=== PATIENT | female | born 1945 | race Caucasian/White ===

== ENCOUNTER 2017-03-19 08:45 | Inpatient (IN) | payer OTHER ==
[2017-02-12 12:10] VITALS: BMI 40.0
--- NOTE | 2017-02-12 12:53 | PAT Medication Instructions ---
Service Date Feb 12, 2017. Current Home Medication List Acetaminophen (Tylenol), 1,000 MG PO BID Aspirin (Aspirin Ec), 81 MG PO NOON Diphenhydramine Hcl (Benadryl Allergy), 1 CAP PO DAILY PRN for ALLERGIES Losartan Potassium & Hydrochlo (Hyzaar), 1 TAB PO QAM Meclizine Hcl (Meclizine Hcl), 1 TAB PO TID PRN for DIZZY Medication Instructions For Your Scheduled Surgery - Hold the following medications the morning of surgery: Losartan Potassium & Hydrochlo (Hyzaar), 1 TAB PO QAM Diphenhydramine Hcl (Benadryl Allergy), 1 CAP PO DAILY PRN for ALLERGIES - Take the following medications the morning of surgery with a sip of water OTHERWISE NOTHING TO EAT OR DRINK AFTER MIDNIGHT: Acetaminophen (Tylenol), 1,000 MG PO BID (may take if needed up to 4 hours prior to surgery) Aspirin (Aspirin Ec), 81 MG PO NOON (time dependent) Meclizine Hcl (Meclizine Hcl), 1 TAB PO TID PRN for DIZZY - Take the following medications as scheduled the night before surgery: Acetaminophen (Tylenol), 1,000 MG PO BID Diphenhydramine Hcl (Benadryl Allergy), 1 CAP PO DAILY PRN for ALLERGIES Meclizine Hcl (Meclizine Hcl), 1 TAB PO TID PRN for DIZZY If you have any questions please call us at [phone] or [phone] or [phone]
[2017-02-12 13:30] LABS: BASO % 0.3 %; BASO ABS # 0.02 K/uL (0-0.2); COMPLETE YES; EOS % 1.3 %; HEMATOCRIT 41.4 % (37-47); IG% 0.3 %; LYMPH % 28.3 %; LYMPH ABS # 1.91 K/uL (1.2-3.4); MEAN CORPUSCULAR HEMOGLOBIN 28.7 pg (25-34); MEAN CORPUSCULAR HGB CONC 33.8 g/dl (32-36); MEAN PLATELET VOLUME 10.2 fL (7.4-10.4); MONO % 5.5 %; NEUT % 64.3 %; PLATELET COUNT 224 K/uL (130-400); RED BLOOD COUNT 4.87 M/uL (4.2-5.4); WHITE BLOOD COUNT 6.76 K/uL (4.8-10.8)
[2017-02-12 13:34] LABS: URINE APPEARANCE CLEAR (CLEAR); URINE BILIRUBIN NEG (NEG); URINE COLOR YELLOW; URINE NITRITE NEG (NEG); URINE PH 7.5 (4.5-7.5); URINE SPECIFIC GRAVITY 1.023 (1.000-1.030); UROBILINOGEN NEG (NEG); ZZUR CULT IF INDIC CLEAN CATCH NO
[2017-02-12 13:41] LABS: PROTHROMBIN TIME (PATIENT) 10.7 SECONDS (9.0-12.0)
[2017-02-12 13:49] LABS: MANUAL MICROSCOPIC REQUIRED? NO; REVIEW REQ? NO
--- NOTE | 2017-02-12 14:09 | DIAGNOSTIC IMAGING REPORT ---
CHEST 2 VIEWS ROUTINE CLINICAL HISTORY: Preoperative chest COMPARISON STUDY: No previous studies for comparison. FINDINGS: The cardiac and mediastinal contours are normal. There is no evidence of focal pulmonary consolidation. There is no evidence of failure. No pleural effusions are visualized.[ IMPRESSION: No active disease in the chest. Electronically signed by: Cuba Hurt M.D. 02/12/2017 2:08 PM Dictated Date/Time: 02/12/2017 2:07 PM
[2017-02-12 14:16] LABS: BUN/CREATININE RATIO 22.6 (10-20); CALCIUM 9.4 mg/dl (8.5-10.1); CREATININE 0.72 mg/dl (0.60-1.20); POTASSIUM 3.9 mmol/L (3.5-5.1)
--- NOTE | 2017-03-18 13:57 | HISTORY & PHYSICAL EXAMINATION ---
DATE OF ADMISSION: 03/19/2017 CHIEF COMPLAINT: Right knee pain. HISTORY OF PRESENT ILLNESS: Jeanette is a 71-year-old female with a 3-year history of right knee pain. The patient rates her pain a 7/10. She has pain with her daily activities. She has limited standing and walking tolerance. Pain is worse with weightbearing. The patient has had injections, physical therapy and Tylenol without relief. She has failed conservative treatment and is scheduled for right knee replacement. PAST MEDICAL HISTORY: Hypertension, mitral valve prolapse, diverticulosis and urinary incontinence. She denies heart disease, diabetes or DVT. PAST SURGICAL HISTORY: Hysterectomy and cataract extraction. SOCIAL HISTORY: The patient denies alcohol or tobacco use. She lives in a single story home. She lives alone but her sister lives close by. She is retired. FAMILY HISTORY: Negative for DVT. MEDICATIONS: Losartan 25 mg, aspirin 81 mg, Tylenol 500 mg, meclizine 25 mg. ALLERGIES: None. REVIEW OF SYSTEMS: See HPI. Ten other systems reviewed, all negative. PHYSICAL EXAMINATION: VITAL SIGNS: Height 5 feet 0 inches, weight 206 pounds, BMI 40. GENERAL: This is a well-developed, well-nourished female who is alert and oriented x3. Mood and affect are appropriate. HEENT: Normocephalic, atraumatic. Mucous membranes are moist and intact. NECK: Supple without lymphadenopathy. HEART: Regular rate and rhythm without murmurs, rubs or gallops. LUNGS: Clear to auscultation without wheezes or rhonchi. ABDOMEN: Soft and nontender. Bowel sounds are equal and active. EXTREMITIES: No ecchymosis, redness or warmth. Thigh and calf are soft and nontender. She has neutral alignment. Range of motion is from 5-115 degrees with +1 laxity. She is neurovascularly intact with +5/5 strength. X-RAY EXAMINATION: AP and lateral views show joint space narrowing and osteophyte formation. IMPRESSION: Degenerative joint disease, right knee. PLAN: The patient will be admitted for a right total knee arthroplasty. We will plan on aspirin for DVT prophylaxis. PCP is Surinder Da Silva.
[~2017-03-19] VITALS: Ht 154.9 cm; Wt 93.0 kg
[2017-03-19] VITALS (8 sets, daily range): BP systolic 102–126; BP diastolic 69–86; PULSE 67–98; TEMP 36.3–36.8; O2SAT 92–99; Ht 154.9 cm; Wt 93.0 kg
[~2017-03-19 08:45] MED LIST: ACET-1256 PO; ACETAMINOPHEN 500 MG TAB PO SCH; ASPI81TA28 PO; BUPIVACAINE 0.25% 30 ML VIAL ONE; BUPIVACAINE 0.5 % 5 MG/1 ML PF 10ML VIAL ONE; CEFAZOLIN 2000 MG/60 ML D5W 60 ML IV SCH; CeleBREX 200 MG CAP PO SCH; DEXAMETHASONE 4 MG TAB PO SCH; DIPH25CA65 PO; FAMOTIDINE 20 MG TAB PO SCH; GABAPENTIN 300 MG CAP PO SCH; LACTATED RINGER'S 1000ML 1,000 ML IV SCH; LACTATED RINGER'S 1000ML 500 ML IV ONE; LACTATED RINGER'S 1000ML IV SCH; LOSA100T2 PO; MECL1TAB42 PO; METOCLOPRAMIDE HCL 10 MG TAB PO SCH; POLYMYXIN B SULFATE 100,000 UNITS in NSS 100ML IR SCH; ROPIVACAINE 5MG/ML 30 ML 150 MG, BUPIVACAINE/EPINEPHR 0.5% MPF 30 ML, KETOROLAC TROMETH... INFIL SCH; SCOPOLAMINE 1.5 MG TDSY TD SCH; TRANEXAMIC ACID INJ 1,000 MG in SODIUM CHLORIDE 0.9% 100ML 100 ML IV SCH; VANCOMYCIN INJ 400 MG in NSS 100ML IR SCH
[2017-03-19] MEDS ORDERED: MIDAZOLAM HCL 1 MG/ML 2ML VIAL ONE (09:16)
[2017-03-19] MEDS ORDERED: FENTANYL CITRATE INJ 50 MCG/1 ML 2 ML VIAL ONE (09:16)
--- NOTE | 2017-03-19 09:56 | History & Physical Bridge Note ---
H&P Re-Evaluation Bridge Note: I have examined the patient, reviewed the History & Physical and in the interval since the performance of the History & Physical I have noted the following changes of clinical significance: No changes noted
[2017-03-19] MEDS ORDERED: ORTHO JOINT ANESTHETIC ONE (10:58)
[2017-03-19] MEDS ORDERED: BUPIVACAINE/EPINEPHRINE 0.25% 1:200,000 30 ML VIAL ONE (10:59)
[2017-03-19] MEDS ORDERED: BACITRACIN 50000 UNIT VIAL ONE (10:59)
[2017-03-19] MEDS ORDERED: POVIDONE-IODINE OP SOLN 30 ML BTL ONE (10:59)
[2017-03-19] MEDS ORDERED: KETOROLAC TROMETHAMINE 30 MG/ML VIAL IV. PRN (11:45)
[2017-03-19] MEDS ORDERED: HYDROmorphone INJ 2 MG/ML SYR/VIAL IV PRN (11:45)
[2017-03-19] MEDS ORDERED: ONDANSETRON INJ 2 MG/ML 2 ML VIAL IV PRN ×2 (11:45→12:45)
[2017-03-19] MEDS ORDERED: PHENYLEPHRINE 100MCG/ML 5ML SYR IV PRN (11:45)
[2017-03-19] MEDS ORDERED: ATROPINE SULFATE 0.1 MG/ML 5ML SYR IV PRN (11:45)
[2017-03-19] MEDS ORDERED: LIDOCAINE HCL 2% 2 ML VIAL (20MG/ML) ONE (11:55)
[2017-03-19] MEDS ORDERED: PROPOFOL IV EMULSION 10 MG/ML 20 ML VIAL IV ONE (11:55)
--- NOTE | 2017-03-19 12:40 | [facility] Post Operative Brief Note ---
Immediate Operative Summary Operative Date Mar 19, 2017. Pre-Operative Diagnosis Right Knee Degenerative Joint Disease Post-Operative Diagnosis Right Knee Degenerative Joint Disease MORBID OBESITY Procedure(s) Performed Right Total Knee Arthroplasty Surgeon Dr. Pablo Vaz Puller Out Surgeon(s) John Sun PA-C Estimated Blood Loss 100ml Findings SEVERE DZ Specimens A. Right Knee Bone and Tissue Complication(s) None Disposition Recovery Room / PACU
[2017-03-19] MEDS ORDERED: SOD PHOSPHATE/SOD BIPHOSPHATE ENEMA 132 ML BTL PR PRN (12:45)
[2017-03-19] MEDS ORDERED: BISACODYL 10 MG SUPP PR PRN (12:45)
[2017-03-19] MEDS ORDERED: ALUMINUM/MAGNESIUM/SIMETH (MAALOX MAX) 30 ML UDC PO PRN (12:45)
[2017-03-19] MEDS ORDERED: TRAMADOL HCL 50 MG TAB PO PRN (12:45)
[2017-03-19] MEDS ORDERED: MoRPHine SULFATE 2 MG/ML CARP IV PRN (12:45)
[2017-03-19] MEDS ORDERED: MAGNESIUM HYDROXIDE SUSP 30 ML UDC PO PRN (12:45)
[2017-03-19] MEDS ORDERED: ZOLPIDEM TARTRATE 5 MG TAB PO PRN (12:45)
[2017-03-19] MEDS ORDERED: DiphenhydrAMINE HCL 50 MG/ML VIAL IV PRN (12:45)
[2017-03-19] MEDS ORDERED: METOCLOPRAMIDE HCL INJ 5 MG/ML 2 ML VIAL IV PRN (12:45)
[2017-03-19] MEDS ORDERED: PHENYLEPHRINE 100MCG/ML 5ML SYR ONE (12:52)
--- NOTE | 2017-03-19 14:04 | DIAGNOSTIC IMAGING REPORT ---
RIGHT KNEE 2 VIEWS History: Right total knee arthroplasty. Degenerative arthritis. Postop. FINDINGS: The patient is status post a right total knee arthroplasty. The hardware is intact. No fracture or dislocation. Surgical drains are in place. IMPRESSION: Right total knee arthroplasty. No evidence for hardware complication. Electronically signed by: Javon Duarte M.D. 03/19/2017 2:02 PM Dictated Date/Time: 03/19/2017 2:01 PM
--- NOTE | 2017-03-19 14:59 | Anesthesiology Progress Note ---
Anesthesia Post Op Note Date & Time Mar 19, 2017 at 14:58 Vital Signs Pain Intensity: 0 Vital Signs Past 12 Hours Date Time Temp Pulse Resp B/P Pulse Ox O2 Delivery O2 Flow Rate FiO2 03/19/17 14:20 73 16 94/57 95 Nasal Cannula 2 03/19/17 14:10 66 16 97/51 95 Nasal Cannula 2 03/19/17 14:00 69 16 103/57 95 Nasal Cannula 2 03/19/17 13:50 79 16 106/76 95 Nasal Cannula 2 03/19/17 13:40 36.5 76 16 108/74 95 Nasal Cannula 2 03/19/17 13:30 84 16 119/86 100 Nasal Cannula 2 03/19/17 13:23 36.0 75 16 107/65 100 Mask 10 03/19/17 09:37 36.5 93 20 122/86 98 Room Air Notes Mental Status: alert / awake / arousable, participated in evaluation Pt Amnestic to Procedure: Yes Nausea / Vomiting: adequately controlled Pain: adequately controlled Airway Patency, RR, SpO2: stable & adequate BP & HR: stable & adequate Hydration State: stable & adequate Anesthetic Complications: no major complications apparent
[2017-03-19] MEDS: CHECK SCOPOLAMINE PATCH PLACEMENT SCH ×2 (16:00→23:40)
--- NOTE | 2017-03-19 17:13 | OPERATIVE REPORT ---
DATE OF OPERATION: 03/19/2017 PREOPERATIVE DIAGNOSES: 1. Degenerative arthritis, right knee. 2. Morbid obesity, BMI of 40. POSTOPERATIVE DIAGNOSES: Same. PROCEDURE: Right total knee with patient matched implant. SURGEON: Dr. Vaz. COLLISION CENTER MANAGER: ELISSA Villalobos. ANESTHESIA: Spinal. BLOOD LOSS: 100 mL. REPLACEMENT FLUIDS: 1800 mL of crystalloid. DRAINS: Hemovac x2. CULTURES: None. COMPLICATIONS: None. COMPONENTS USED: Zepeda \T\ Nephew Journey Knee System: Femur size 4, tibia size 4 x 15, patella size 32. NOTE: ELISSA Villalobos was present and assisted throughout due to the complicated nature of this case. He helped with preparation and setup, first assisted throughout and personally closed the capsule, subcutaneous and skin layers and applied the postoperative dressing. DESCRIPTION: Following satisfactory spinal, the patient was supine. A tourniquet was placed but not inflated. The lower extremity was prepared with ChloraPrep and draped sterilely. Following a surgical time-out, a midline incision was made. The patient had an extremely large subcutaneous fat layer which measured at least 5 inches thick. This required additional time and effort to expose the capsule of the knee. Eventually, the knee capsule was exposed. Median parapatellar arthrotomy was performed. The knee showed severe grade 4 changes throughout. The anterior cruciate ligament was absent. The posterior cruciate ligament was excised. The patient matched femoral block was applied. Femoral distal rotation and resection were set and completed. The 4-in-1 block was used to finish preparation of the femur. The patient matched tibial block was applied. Tibial resection was completed. The patella was freehand cut. Soft tissue balancing was completed and a trial reduction showed good tensioning stability on the collateral ligaments, stable range of motion, and the patella tracked well. The approach to the case was difficult because the patient had an obese body habitus and a patellar tendon that was very short. The trial components were removed. The capsule was prepared with the orthopedic cocktail and after irrigation, the components were cemented with Simplex G cement. A Betadine soak was performed. When the cement had hardened, the Betadine was irrigated. Two drains were placed. The arthrotomy was closed with a running suture of 0 V-Loc and reinforced with #1 Vicryl. The subcutaneous tissues with #1 and 2-0 Vicryl and the skin with a running subcuticular stitch of 3-0 V-Loc. Dermabond, a silver dressing and a negative pressure wound dressing were applied. The patient was returned to her bed in stable condition. I attest to the content of the Intraoperative Record and any orders documented therein. Any exceptio ns are noted below.
[2017-03-19] MEDS: KETOROLAC TROMETHAMINE 15 MG/ML VIAL IV. PRN (18:38)
[2017-03-19] MEDS ORDERED: TRANEXAMIC ACID INJ 1,000 MG in SODIUM CHLORIDE 0.9% 100ML 100 ML IV SCH (20:00)
[2017-03-19] MEDS: CEFAZOLIN IV 2,000 MG in DEXTROSE 5% 50ML 50 ML IV SCH (20:33)
[2017-03-19] MEDS: OXYCODONE HCL 10 MG TABCR (OXYCONTIN) PO SCH (20:40)
[2017-03-19] MEDS: ASPIRIN 81 MG ECTAB PO SCH (20:41)
[2017-03-19] MEDS: SENNA 8.6 MG TAB PO SCH (20:42)
[2017-03-19] MEDS: ACETAMINOPHEN 500 MG TAB PO SCH (21:51)
[2017-03-20] MEDS: CEFAZOLIN IV 2,000 MG in DEXTROSE 5% 50ML 50 ML IV SCH (03:59)
[2017-03-20 04:16] VITALS: BP 105/71; PULSE 85; TEMP 36.5; O2SAT 92
[2017-03-20 05:34] LABS: HEMATOCRIT 33.5 % (37-47); MEAN CELL VOLUME 87.2 fL (80-100); MEAN CORPUSCULAR HEMOGLOBIN 28.6 pg (25-34); MEAN CORPUSCULAR HGB CONC 32.8 g/dl (32-36); MEAN PLATELET VOLUME 10.2 fL (7.4-10.4); PLATELET COUNT 222 K/uL (130-400); RED BLOOD COUNT 3.84 M/uL (4.2-5.4); WHITE BLOOD COUNT 14.81 K/uL (4.8-10.8)
[2017-03-20] MEDS: ACETAMINOPHEN 500 MG TAB PO SCH ×3 (05:35→21:36)
[2017-03-20 06:14] LABS: BUN/CREATININE RATIO 18.6 (10-20); CALCIUM 8.7 mg/dl (8.5-10.1)
[2017-03-20 07:05] VITALS: BP 116/79; PULSE 73; TEMP 36.6; O2SAT 98
[2017-03-20] MEDS: CHECK SCOPOLAMINE PATCH PLACEMENT SCH ×3 (08:00→23:39)
--- NOTE | 2017-03-20 08:21 | Orthopedic Progress Note ---
Orthopedic Progress Note Date of Service Mar 20, 2017. Subjective Post OP Day: 1 Reports: feeling well, Denies: SOB, calf pain, chest pain, light headedness, nausea / vomiting Objective calves soft nontender, N/V intact, dressing C/D/I (PREVENA), A&O x3, toes mobile , hemovac drainage (325/100CC PER SHIFT) Date Time Temp Pulse Resp B/P Pulse Ox O2 Delivery O2 Flow Rate FiO2 03/20/17 07:05 36.6 73 18 116/79 98 Room Air 03/20/17 04:16 36.5 85 16 105/71 92 Room Air 03/19/17 23:11 36.4 71 16 122/71 92 Room Air 03/19/17 20:30 Room Air 03/19/17 19:55 36.7 96 16 110/73 95 Nasal Cannula 2.0 03/19/17 17:25 36.5 98 16 110/75 96 Nasal Cannula 3.0 03/19/17 16:25 36.5 67 17 102/69 99 Nasal Cannula 3.0 03/19/17 15:25 36.4 81 17 126/75 97 Nasal Cannula 3.0 03/19/17 14:55 36.8 69 17 114/71 96 Nasal Cannula 3.0 03/19/17 14:25 Nasal Cannula 3.0 03/19/17 14:25 94 Nasal Cannula 3.0 03/19/17 14:25 36.3 88 16 106/70 94 Nasal Cannula 3.0 03/19/17 14:20 73 16 94/57 95 Nasal Cannula 2 03/19/17 14:10 66 16 97/51 95 Nasal Cannula 2 03/19/17 14:00 69 16 103/57 95 Nasal Cannula 2 03/19/17 13:50 79 16 106/76 95 Nasal Cannula 2 03/19/17 13:40 36.5 76 16 108/74 95 Nasal Cannula 2 03/19/17 13:30 84 16 119/86 100 Nasal Cannula 2 03/19/17 13:23 36.0 75 16 107/65 100 Mask 10 03/19/17 09:37 36.5 93 20 122/86 98 Room Air Laboratory Results 24 Hours: Test 03/20/17 05:15 Hematocrit 33.5 % Hemoglobin 11.0 g/dL Assessment & Plan Assessment: POD#1 SP RIGHT TKA Inhouse Planning Pain Management: Celebrex, Oxycontin, PO Tylenol, Oxy IR DVT Prophylaxis: TEDs, SCDs, ASA Discharge Planning Discharge Planning: home with home health ([facility] LAT[facility] TODAY PENDING HEMOVAC OUTPUT)
--- NOTE | 2017-03-20 08:22 | Discharge Instructions ---
Discharge Instructions Date of Service Mar 20, 2017. Admission Reason for Admission: Right Degenerative Arthritis-Leg/Knee Discharge Discharge Diagnosis / Problem: SP RIGHT TKA Discharge Goals Goal(s): Decrease discomfort, Improve function, Increase independence Activity Recommendations Activity Limitations: per Instructions/Follow-up section . Instructions / Follow-Up Instructions / Follow-Up ACTIVITY RECOMMENDATIONS: SELF CARE INSTRUCTIONS AFTER TOTAL KNEE REPLACEMENT A. You may need to continue a physical therapy program after discharge from the hospital. There are several options available to you. Your doctor will assist you in selecting the best one for you. 1. An out-patient facility 2 to 3 times a week for therapy or home therapy. 2. Continue working on all exercises taught to you in the hospital. Your goals should be to increase bending of your knee to 90 degrees and beyond and to fully straighten your knee. B. You may progress at your own pace from walking with a walker or crutches to a cane; then to no assistive devices. C. Make walking a part of your daily routine. Be up as much as comfortable with rest periods throughout the day. Rest with leg elevation is very important. Use the ice wrap frequently for the first 3-4 weeks. D. There are no restrictions on activities. You may ride in a car, shop, participate in contract associate manager and all social activities. E. Wear the long elastic stockings (KIM hose) 20 hours a day for 2 weeks after surgery. They can be removed several times a day for laundering and for a bath. F. You may shower, no tub baths until cleared by your doctor. SPECIAL CARE INSTRUCTIONS: VERY IMPORTANT TO READ AND REVIEW A. There are a few signs you need to watch for after you are home. Call [facility] if you notice any of the followin. Increased severe knee pain. Some pain is expected especially when you exercise. 2. Increased swelling in your leg or knee; pain or swelling of the calf muscle in either lower leg. 3. Any fluid drainage from the incision. 4. Shortness of breath or chest pain. B. Please call [facility] at if you have any concerns or questions about your operation or recovery. The doctor or his nurse will return your call promptly. C. You must take antibiotics before dental work, bladder, bowel or other surgery. Your doctor will provide you with a permanent care to carry describing this precaution. IMPORTANT: * REMEMBER TO TAKE ASPIRIN, 81 MG, TWICE DAILY FOR 4 WEEKS UNLESS OTHERWISE DIRECTED. THIS IS YOUR BLOOD THINNER. * HIGH RISK PATIENTS MAY BE PRESCRIBED A STRONGER BLOOD THINNER. THIS WILL BE PROVIDED AT DISCHARGE. * CALL IF INCREASED PAIN, REDNESS, DRAINAGE OR FEVER GREATER THAT 101. * WEAR KIM HOSE 20 HOURS PER DAY FOR 2 WEEKS. Prevena- This is a large suction dressing covering your incision. This will help pull any excess drainage from the wound and allow your incision to heal properly. You may shower with this if you can keep the unit outside of the shower. If any bleeding or leakage is noted please call your doctor's office. This will remain on your incision for 7 days and then should be removed. This can be done yourself or by the home nursing staff if applicable. The entire unit is disposable once removed. Once removed, keep incision clean and dry. If redness or drainage is noted, please call your surgeon. FOLLOW UP VISIT: If appointment is not already scheduled: Please call [facility] to make a follow-up appointment for 2 weeks after your surgery at . Current Hospital Diet Patient's current hospital diet: Regular Diet Discharge Diet Recommended Diet: Regular Diet Procedures Procedures Performed: Right Total Knee Arthroplasty Pending Studies Studies pending at discharge: no Medical Emergencies . Who to Call and When: Medical Emergencies: If at any time you feel your situation is an emergency, please call [phone] immediately. . Non-Emergent Contact Non-Emergency issues call your: Surgeon . "Provider Documentation" section prepared by Ramonita Resendiz. . VTE Core Measure Inpt VTE Proph given/why not?: Other Anticoagulation, T.E.D. Stockfrancois, SCD's [place] Drug Monitoring Program Search Results: patient reviewed within database, no issues identified
[2017-03-20] MEDS ORDERED: RXC5 PO (08:26)
[2017-03-20] MEDS ORDERED: ONDA8TAB6 PO (08:26)
[2017-03-20] MEDS ORDERED: ASPI81TA28 PO (08:26)
[2017-03-20] MEDS ORDERED: MORP-157 PO (08:26)
[2017-03-20] MEDS ORDERED: CLB200 PO (08:26)
[2017-03-20] MEDS ORDERED: ACET-1256 PO (08:26)
[2017-03-20] MEDS ORDERED: SNK PO (08:26)
[2017-03-20] MEDS: ASPIRIN 81 MG ECTAB PO SCH ×2 (08:44→21:35)
[2017-03-20] MEDS: MULTIVITAMIN TAB PO SCH (08:44)
[2017-03-20] MEDS: OXYCODONE HCL 10 MG TABCR (OXYCONTIN) PO SCH ×2 (08:44→21:33)
[2017-03-20] MEDS: OXYCODONE HCL IR 5 MG TAB (IMMEDIATE RELEASE) PO PRN ×2 (08:44→18:20)
[2017-03-20] MEDS: PANTOprazole SOD 40 MG TAB PO SCH (08:45)
[2017-03-20] MEDS: LOSARTAN/HCTZ 50-12.5 EA TAB PO SCH (08:45)
[2017-03-20] MEDS: KETOROLAC TROMETHAMINE 15 MG/ML VIAL IV. PRN (10:39)
--- NOTE | 2017-03-20 11:14 | Anesthesiology Progress Note ---
Anesthesia Post Op Note Date & Time Mar 20, 2017 at 11:12 Vital Signs Pain Intensity: 5.0 Vital Signs Past 12 Hours Date Time Temp Pulse Resp B/P Pulse Ox O2 Delivery O2 Flow Rate FiO2 03/20/17 08:00 Room Air 03/20/17 07:05 36.6 73 18 116/79 98 Room Air 03/20/17 04:16 36.5 85 16 105/71 92 Room Air Notes Mental Status: alert / awake / arousable, participated in evaluation Pt Amnestic to Procedure: Yes Nausea / Vomiting: adequately controlled Pain: adequately controlled Airway Patency, RR, SpO2: stable & adequate BP & HR: stable & adequate Hydration State: stable & adequate Neuraxial Anesthesia: sensory block resolved Anesthetic Complications: no major complications apparent
[2017-03-20 11:23] VITALS: BP 103/67; PULSE 62; TEMP 36.8; O2SAT 94
[2017-03-20 16:00] VITALS: BP 109/73; PULSE 70; TEMP 36.9; O2SAT 95
[2017-03-20] MEDS: SENNA 8.6 MG TAB PO SCH (21:52)
[2017-03-20 23:30] VITALS: BP 117/75; PULSE 85; TEMP 36.7; O2SAT 95
[2017-03-21] MEDS: KETOROLAC TROMETHAMINE 15 MG/ML VIAL IV. PRN (04:55)
[2017-03-21] MEDS: ACETAMINOPHEN 500 MG TAB PO SCH ×2 (05:23→14:01)
[2017-03-21 07:02] VITALS: BP 111/70; PULSE 61; TEMP 36.6; O2SAT 93
--- NOTE | 2017-03-21 07:56 | Orthopedic Progress Note ---
Orthopedic Progress Note Date of Service Mar 21, 2017. Subjective Post OP Day: 2 Reports: feeling well, Denies: SOB, calf pain, chest pain, light headedness, nausea / vomiting Objective calves soft nontender, N/V intact, dressing C/D/I, A&O x3, toes mobile Date Time Temp Pulse Resp B/P Pulse Ox O2 Delivery O2 Flow Rate FiO2 03/21/17 07:02 36.6 61 19 111/70 93 Nasal Cannula 03/20/17 23:30 36.7 85 16 117/75 95 Room Air 03/20/17 19:40 Room Air 03/20/17 16:00 36.9 70 17 109/73 95 Room Air 03/20/17 11:23 36.8 62 20 103/67 94 Room Air 03/20/17 08:00 Room Air Assessment & Plan Assessment: POD#2 SP RIGHT TKA Inhouse Planning Pain Management: Celebrex, Oxycontin, PO Tylenol, Oxy IR DVT Prophylaxis: TEDs, SCDs, ASA Discharge Planning Discharge Planning: home with home health ([facility] HOME TODAY AFTER PT)
[2017-03-21] MEDS: LOSARTAN/HCTZ 50-12.5 EA TAB PO SCH (08:28)
[2017-03-21] MEDS: MULTIVITAMIN TAB PO SCH (08:29)
[2017-03-21] MEDS: PANTOprazole SOD 40 MG TAB PO SCH (08:29)
[2017-03-21] MEDS: OXYCODONE HCL IR 5 MG TAB (IMMEDIATE RELEASE) PO PRN ×2 (08:33→12:33)
[2017-03-21] MEDS: OXYCODONE HCL 10 MG TABCR (OXYCONTIN) PO SCH (08:33)
[2017-03-21 09:14] VITALS: BP 111/70; PULSE 61; TEMP 36.6; O2SAT 93
[2017-03-21] MEDS: ASPIRIN 81 MG ECTAB PO SCH (09:42)
--- NOTE | 2017-03-21 13:50 | DISCHARGE SUMMARY ---
DISCHARGE DIAGNOSIS: Degenerative joint disease, right knee. SECONDARY DIAGNOSES: Morbid obesity, hypertension, mitral valve prolapse, diverticulosis, and urinary incontinence. CONSULTS: None. COMPLICATIONS: None. PROCEDURES: Right total knee arthroplasty performed by Dr. Louis Vaz on 03/19/2017. BRIEF HISTORY: As dictated in the history and physical. HOSPITAL SUMMARY: The patient was admitted on the above date and had the above-noted surgery performed, which she tolerated well. On the first postoperative day, she was feeling well and had no complaints. Calves were soft and nontender, neurovascularly intact. Dressings clean, dry and intact. Toes were mobile. Vital signs were stable. She was afebrile and hemoglobin was 11.0. She was started on physical therapy protocol and continued on DVT prophylaxis and pain management. By her second postoperative day, she was feeling well and was progressing well with her PT. Dressing was intact with Prevena dressing. Toes were mobile. Neurovascular intact. Vital signs are stable and it was felt she could be discharged to home on 03/21/2017. For further review, please see chart. LAB AND X-RAY DATA: As per chart. DISCHARGE INSTRUCTIONS: The patient was discharged to home in satisfactory condition on 03/21/2017. DIET: Regular. ACTIVITY: Follow TK instruction sheets and special care instructions as noted. Follow up with Dr. Louis Vaz in 2 weeks. The patient is to call for appointment if one has not been made for you. DISCHARGE MEDICATIONS: Celebrex 200 mg p.o. b.i.d., MS Contin 15 mg p.o. q. 12 hours, Zofran 8 mg p.o. q. 8 hours p.r.n., oxycodone 5-10 mg p.o. q. 4 hours p.r.n., and senna 17.2 mg at bedtime. Resume taking Benadryl Allergy 1 cap p.o. daily p.r.n., Hyzaar 1 tab p.o. q.a.m., meclizine 1 tab p.o. t.i.d. p.r.n. dizziness, acetaminophen 1000 mg p.o. q. 8 hours for 30 days, and aspirin 81 mg p.o. b.i.d. for 30 days and after 30 days, resume once daily dosing.
[2017-03-21] MEDS ORDERED: CeleBREX 200 MG CAP PO SCH (21:00)
== END 2017-03-21 14:22 | disposition home health service (06) | DRG 470 ==
LOC: ENRESERVDT → ENRESERVTM → C.ACU 08:45 → C.3E 12:43
PROVIDERS: ADMIT Orthopaedic Surgery; ATTEND Orthopaedic Surgery
PROC: 0SRC0J9 Replacement of Right Knee Joint with Synthetic Substitute, Cemented, Open Approach (ICD-10-PCS; principal; 2017-03-19 11:00)
DX: M17.11 Unilateral primary osteoarthritis, right knee (principal); Z68.41 Body mass index [BMI] 40.0-44.9, adult; E66.01 Morbid (severe) obesity due to excess calories; I10 Essential (primary) hypertension; R32 Unspecified urinary incontinence; I34.1 Nonrheumatic mitral (valve) prolapse; K57.90 Diverticulosis of intestine, part unspecified, without perforation or abscess without bleeding; Z79.82 Long term (current) use of aspirin